=== PATIENT | female | born 1995 | race African-American/Black ===

== ENCOUNTER 2016-09-04 14:17 | Emergency (ER) | payer OTHER, MEDICAID ==
[~2016-09-04] VITALS: Ht 157.5 cm; Wt 69.4 kg
[2016-09-04 14:44] VITALS: BP 121/66
[2016-09-04 14:59] LABS: Urine Bilirubin Negative (Negative); Urine Blood Negative /uL (Negative); Urine Color Yellow (Yellow); Urine Glucose Normal (Normal); Urine Ketone Negative (Negative); Urine Nitrite Negative (Negative); Urine RBC <1 /hpf (0 - 4); Urine Squamous Epithelial Cell FEW /hpf (<5); Urine Urobilinogen Normal (Negative); Urine pH 5.5 (5.0-8.0)
== END 2016-09-04 17:00 | disposition left against medical advice (07) ==
LOC: ER 14:19
DX: R11.2 Nausea with vomiting, unspecified (principal); N93.9 Abnormal uterine and vaginal bleeding, unspecified; Z53.21 Procedure and treatment not carried out due to patient leaving prior to being seen by health care provider
CPT/HCPCS: 81001; 81025